=== PATIENT | female | born 1990 | race Caucasian/White ===

== ENCOUNTER 2016-10-08 15:42 | Emergency (ER) | payer MEDICAID ==
[2016-10-08 16:24] VITALS: BP 95/59
--- NOTE | 2016-10-08 16:24 | Emergency Department Report ---
Chief Complaint: Urogenital-Female Stated Complaint: VAGINA SWOLLEN FROM YEAST INFECTION MEDICATION Time Seen by Provider: 10/08/16 16:21 - HPI History of Present Illness: pt states she used OTC Monistat 2 days ago for yeast infection. PT reports vaginal swelling and pain - ROS Review of Systems: + discharge + itching lmp- 3 weeks ago - Exam Physical Exam: pt looks well, non toxic. steady gait. gcs 15 gu exam not done in triage MSE screening note: Focused history and physical exam performed. Due to findings the following was ordered: labs ED Disposition for MSE Condition: Stable
--- NOTE | 2016-10-12 14:53 | ED Elopement Review ---
ED Pt Elopement review - Call Back decision Pt Call Back Decision: No action required
== END 2016-10-08 23:30 | disposition left against medical advice (07) ==
LOC: ED 15:42
DX: N89.8 Other specified noninflammatory disorders of vagina (principal); Z53.21 Procedure and treatment not carried out due to patient leaving prior to being seen by health care provider